=== PATIENT | male | born 1940 | race Caucasian/White ===

== ENCOUNTER → 2016-03-17 | Outpatient (CLI) | payer MEDICARE, BC | END | disposition home or self-care (01) | LOC: PCVCCLINIC 10:20 | PROVIDERS: ATTEND Internal Medicine | DX: I25.10 Atherosclerotic heart disease of native coronary artery without angina pectoris (principal); I10 Essential (primary) hypertension; E11.40 Type 2 diabetes mellitus with diabetic neuropathy, unspecified; E78.00 Pure hypercholesterolemia, unspecified; G47.30 Sleep apnea, unspecified; I63.9 Cerebral infarction, unspecified; I71.4 Abdominal aortic aneurysm, without rupture | CPT/HCPCS: 80061; 93005; G0463 ==

== ENCOUNTER → 2016-09-15 | Outpatient (CLI) | payer MEDICARE, BC ==
--- NOTE | 2016-09-15 15:27 | PCVCIMAG ---
APPROVED REPORT Indications Stenosis Risk Factors Hypertension: Hyperlipidemia CAD, Diabetes, Stroke Doppler Spectral Velocity Analysis PSV / EDVPSV / EDV ECA (R) 157 / 13 cm/sECA (L) 182 / 9 cm/s dICA (R) 64 / 22 cm/sdICA (L) 74 / 26 cm/s Petra (R) 68 / 21 cm/smICA (L) 127 / 31 cm/s pICA (R) 100 / 17 cm/spICA (L) 106 / 25 cm/s Bulb (R) 145 / 17 cm/sBulb (L) 88 / 17 cm/s dCCA (R) 123 / 15 cm/sdCCA (L) 114 / 17 cm/s mCCA (R) 98 / 16 cm/smCCA (L) 127 / 17 cm/s Vert (R) 38 / 6 cm/sVert (L) 24 / 9 cm/s ICA/CCA 0.81ICA/CCA 1.11 Basic Measurements Blood Pressure: Pulses: Right Left RightLeft Brachial(Sitting) 172/[id number]/76mmHgTemporal Real Time B-Mode Imaging Vert. (R)AntegradeVert. (L)Antegrade Findings The right carotid bulb has moderate calcified plaque. The right proximal internal carotid artery shows 40-50% stenosis. The right common carotid artery shows <40% stenosis. The right external carotid artery shows <50% stenosis. The left carotid bulb has moderate plaque. The left proximal internal carotid artery shows 40-50% stenosis. The left common carotid artery shows no significant stenosis. The left external carotid artery shows >50% stenosis. Conclusion 1. Right internal carotid artery stenosis (40-50%) 2. Left internal carotid artery stenosis (40-50%) 3. Antegrade vertebral flow
== END | disposition home or self-care (01) ==
LOC: PCVCIMAG 09:38
PROVIDERS: ATTEND Internal Medicine
DX: I65.23 Occlusion and stenosis of bilateral carotid arteries (principal); I45.10 Unspecified right bundle-branch block; I25.10 Atherosclerotic heart disease of native coronary artery without angina pectoris; I10 Essential (primary) hypertension; E78.5 Hyperlipidemia, unspecified; E11.40 Type 2 diabetes mellitus with diabetic neuropathy, unspecified; Z79.4 Long term (current) use of insulin; Z95.1 Presence of aortocoronary bypass graft; Z86.73 Personal history of transient ischemic attack (TIA), and cerebral infarction without residual deficits; Z90.49 Acquired absence of other specified parts of digestive tract; Z79.82 Long term (current) use of aspirin; Z79.84 Long term (current) use of oral hypoglycemic drugs; Z87.891 Personal history of nicotine dependence; Z88.8 Allergy status to other drugs, medicaments and biological substances
CPT/HCPCS: 93880; G0463

== ENCOUNTER → 2016-10-14 | Outpatient (CLI) | payer MEDICARE, BC ==
--- NOTE | 2016-10-14 17:46 | PCVCIMAG ---
EXAM: BILATERAL SUPERFICIAL VENOUS DUPLEX INDICATION: Leg pain and swelling. FINDINGS: Right leg: No thrombus in the common femoral, main femoral, or popliteal veins. These veins are compressible. Right Great Saphenous Vein: At the saphenofemoral junction the diameter is 10.6 mm, in the mid thigh it is 7.4 mm, and in the calf it is 5.5 mm. There is significant venous insufficiency/reflux throughout. Venous insufficiency/reflux duration is 11.8 seconds. Right Small Saphenous Vein: At the saphenopopliteal junction the diameter is 6.8 mm, and in the calf it is 5.1 mm. There is significant venous insufficiency/reflux throughout. Venous insufficiency/reflux duration is 5.7 seconds. There is not a cranial extension present. Left leg: No thrombus in the common femoral, main femoral, or popliteal veins. These veins are compressible. Left Great Saphenous Vein: At the saphenofemoral junction the diameter is 10.3 mm, in the mid thigh it is 6.0 mm, and in the calf it is 5.5 mm. There is significant venous insufficiency/reflux throughout. Venous insufficiency/reflux duration is 7.5 seconds. Left Small Saphenous Vein: At the saphenopopliteal junction the diameter is 7.3 mm, and in the calf it is 5.0 mm. There is significant venous insufficiency/reflux throughout. Venous insufficiency/reflux duration is 5.7 seconds. There is a cranial extension present. IMPRESSION: Right Great Saphenous Vein: Significant venous insufficiency/reflux is present as noted above. Right Small Saphenous Vein: Significant venous insufficiency/reflux is present as noted above. Left Great Saphenous Vein: Significant venous insufficiency/reflux is present as noted above. Left Small Saphenous Vein: Significant venous insufficiency/reflux is present as noted above. LOC:[id number]
== END | disposition home or self-care (01) ==
LOC: PCVCIMAG 10:20
PROVIDERS: ATTEND Internal Medicine
DX: I87.2 Venous insufficiency (chronic) (peripheral) (principal); I25.10 Atherosclerotic heart disease of native coronary artery without angina pectoris; I10 Essential (primary) hypertension; I65.23 Occlusion and stenosis of bilateral carotid arteries; E78.5 Hyperlipidemia, unspecified; E11.40 Type 2 diabetes mellitus with diabetic neuropathy, unspecified; Z79.4 Long term (current) use of insulin
CPT/HCPCS: 93970

== ENCOUNTER → 2016-11-16 | Outpatient (CLI) | payer MEDICARE, BC | END | disposition home or self-care (01) | LOC: PCVCCLINIC 14:23 | PROVIDERS: ATTEND Nuclear Medicine Nuclear Cardiology | DX: I87.2 Venous insufficiency (chronic) (peripheral) (principal); I10 Essential (primary) hypertension; I71.4 Abdominal aortic aneurysm, without rupture; I77.9 Disorder of arteries and arterioles, unspecified; I71.2 Thoracic aortic aneurysm, without rupture; E11.40 Type 2 diabetes mellitus with diabetic neuropathy, unspecified; Z86.73 Personal history of transient ischemic attack (TIA), and cerebral infarction without residual deficits; Z90.49 Acquired absence of other specified parts of digestive tract; Z95.1 Presence of aortocoronary bypass graft; Z87.891 Personal history of nicotine dependence; Z79.899 Other long term (current) drug therapy; Z79.82 Long term (current) use of aspirin; Z79.84 Long term (current) use of oral hypoglycemic drugs; Z88.8 Allergy status to other drugs, medicaments and biological substances | CPT/HCPCS: G0463 ==

== ENCOUNTER → 2016-11-23 | Outpatient (CLI) | payer MEDICARE, BC ==
[~2016-11-23] MED LIST: DIAZEPAM 10 MG TABLET. ONE; FAMOTIDINE 20 MG/2 ML VIAL ONE; HEPARIN SODIUM 5,000 UNIT/ML VIAL for PCVC. ONE; IOHEXOL 300 MG/ML 100ML VIAL. ONE; IV NORMAL SALINE 500ML BAG 500 ML ONE; LIDOCAINE 1% Multi-Dose 20 ML VIAL. ONE; MIDAZOLAM HCL/PF 2 MG/2 ML VIAL. ONE; diphenhydrAMINE 50 MG/ML VIAL ONE; fentaNYL PF VIAL 100 MCG/2 ML VIAL ONE; methylPREDNISolone SOD SUCC PF 125 MG/2 ML VIAL. ONE
--- NOTE | 2016-11-23 16:38 | PCVCINTER ---
EXAM: 1. INTRAVASCULAR ULTRASOUND OF THE INFERIOR VENA CAVA 2. INTRAVASCULAR ULTRASOUND OF THE RIGHT COMMON AND EXTERNAL ILIAC AND COMMON FEMORAL VEINS 3. INTRAVASCULAR ULTRASOUND OF THE LEFT COMMON AND EXTERNAL ILIAC AND COMMON FEMORAL VEINS 4. INFERIOR VENA CAVA AND BILATERAL ILIOFEMORAL VENOGRAPHY 5. RIGHT COMMON ILIAC VEIN STENT PLACEMENT. 6. RIGHT EXTERNAL ILIAC VEIN STENT PLACEMENT. 7. LEFT EXTERNAL ILIAC VEIN STENT PLACEMENT. INDICATION: Iliofemoral venous obstruction. Chronic Venous Insufficiency Class 6. Leg pain and swelling. Failed conservative therapy including medical grade compression stockings for at least 3 months. Venous hypertension chronic. PROCEDURE: Procedure and risks of IVC and ileofemoral venography and intravascular ultrasound, and venous stent placement as appropriate including bleeding, infection, venous thrombosis, stent migration/thrombosis, contrast-induced nephropathy requiring dialysis, stroke, and were discussed with the patient and consent obtained. Patient was given IV antibiotics. The patient's right neck and chest was prepped and draped in the normal sterile fashion. IV conscious sedation was used throughout the procedure with appropriate monitoring. Ultrasound was used to interrogate the neck and showed the internal jugular vein to be patent. A spot ultrasound image of the internal jugular vein was saved. Under ultrasound guidance access into the right internal jugular vein was obtained and an 8F sheath was placed to the level of the lower IVC. Catheter was placed into the lower IVC and IVC cavogram performed. Catheter was placed to the level of the right common femoral vein and right iliofemoral venogram obtained. Catheter was placed to the level of the left common femoral vein and left iliofemoral venogram was obtained. The 8 [place] intravascular ultrasound catheter was then placed to the level of the right common femoral vein and intravascular ultrasound evaluation of the right common femoral, right external iliac, and right common iliac veins was accomplished in a pull-back fashion. The 8 [place] intravascular ultrasound catheter was then placed to the level of the left common femoral vein and intravascular ultrasound evaluation of the left common femoral, left external iliac, and left common iliac veins was accomplished in a pull-back fashion. Intravascular ultrasound evaluation of the inferior vena cava was then accomplished in a pullback fashion. Stent placement was performed at the area of high-grade extrinsic compression in the right external iliac vein with a 14 x 80 Smart control stent with subsequent dilatation to 14 mm. Stent placement across the area of significant extrinsic compression in the right common iliac vein was performed with a 14 x 60 Smart control stent with subsequent dilatation to 14 mm. Stent placement across the area of significant extrinsic compression in the left external iliac vein was performed with a 14 x 80 Smart control stent with subsequent dilatation to 14 mm. Follow-up intravascular ultrasound throughout the treated vessels was performed. Sheath was removed and hemostasis obtained using manual pressure. FINDINGS: IVC INTRAVASCULAR ULTRASOUND: Normal vessel: 12.9 x 17.7 mm. Area = 176.9 sq. mm. RIGHT COMMON ILIAC VEIN INTRAVASCULAR ULTRASOUND: Normal vessel: 9.0 x 14.1 mm. Area = 96.8 sq. mm. Minimum vessel diameter: 2.4 x 8.5 mm. Area = 20.0 sq. mm. Post-Intervention diameter: 11.9 x 13.9 mm. Area = 125.7 sq. mm. RIGHT EXTERNAL ILIAC VEIN INTRAVASCULAR ULTRASOUND: Normal vessel: 8.8 x 14.8 mm. Area = 104.7 sq. mm. Minimum vessel diameter: 2.9 x 6.2 mm. Area = 14.5 sq. mm. Post-Intervention diameter: 11.5 x 12.4 mm. Area = 110.3 sq. mm. RIGHT COMMON FEMORAL VEIN INTRAVASCULAR ULTRASOUND: Normal vessel: 9.5 x 12.3 mm. Area = 91.5 sq. mm LEFT COMMON ILIAC VEIN INTRAVASCULAR ULTRASOUND: Normal vessel: 10.9 x 13.7 mm. Area = 122.3 sq. mm. LEFT EXTERNAL ILIAC VEIN INTRAVASCULAR ULTRASOUND: Normal vessel: 7.7 x 17.6 mm. Area = 113.7 sq. mm. Minimum vessel diameter: 2.8 x 9.0 mm. Area = 19.5 sq. mm. Post-Intervention diameter: 10.9 x 14.3 mm. Area = 127.3 sq. mm. LEFT COMMON FEMORAL VEIN INTRAVASCULAR ULTRASOUND: Normal vessel: 12.3 x 14.5 mm. Area = 135.0 sq. mm. VENOGRAPHY: INFERIOR VENA CAVA: Vessel is patent without significant stenosis, scarring, or extrinsic compression. RIGHT COMMON ILIAC VEIN: Significant extrinsic compression in the mid and lower vessel causing 79% area reduction. RIGHT EXTERNAL ILIAC VEIN: Significant extrinsic compression throughout the mid and upper vessel resulting in 86% diameter reduction. RIGHT COMMON FEMORAL VEIN: Vessel is patent without significant stenosis, scarring, or extrinsic compression. LEFT COMMON ILIAC VEIN: Vessel is patent without significant stenosis, scarring, or extrinsic compression. LEFT EXTERNAL ILIAC VEIN: Significant extradural compression throughout the mid and upper vessel resulting in 83% area reduction. LEFT COMMON FEMORAL VEIN: Vessel is patent without significant stenosis, scarring, or extrinsic compression. IMPRESSION: High-grade extrinsic compression involving the right common and external iliac veins and left external iliac vein were treated with stent placements with good patency restored and good position of the stents. LOC:[id number]
== END | disposition home or self-care (01) ==
LOC: PCVCINTER 10:38
PROVIDERS: ATTEND Nuclear Medicine Nuclear Cardiology
DX: I87.2 Venous insufficiency (chronic) (peripheral) (principal); I74.3 Embolism and thrombosis of arteries of the lower extremities; I87.009 Postthrombotic syndrome without complications of unspecified extremity; E66.9 Obesity, unspecified; E78.5 Hyperlipidemia, unspecified; E11.9 Type 2 diabetes mellitus without complications; E78.00 Pure hypercholesterolemia, unspecified
CPT/HCPCS: 37238; 37239; 37252; 37253; 75822; 75825; 76937; 99152; 99153; C1725; C1751; C1753; C1769; C1876; C1894; J0690; J1200; J1644; J2250; J2930; J3010; J7040; Q9967; S0028

== ENCOUNTER → 2017-02-01 | Outpatient (CLI) | payer MEDICARE, BC ==
--- NOTE | 2017-02-01 12:18 | PCVCIMAG ---
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 FINDINGS: INFERIOR VENA CAVA: The inferior vena cava is patent where visualized. RIGHT COMMON ILIAC VEIN: Vessel is patent without significant stenosis. Previous stent is patent. RIGHT EXTERNAL ILIAC VEIN: Vessel is patent without significant stenosis. Previous stent is patent. LEFT COMMON ILIAC VEIN: Vessel is patent without significant stenosis. LEFT EXTERNAL ILIAC VEIN: Vessel is patent without significant stenosis. Previous stent is patent. IMPRESSION: The inferior vena cava and bilateral common and external iliac veins are patent as reviewed above. LOC:[id number]
--- NOTE | 2017-02-01 12:21 | PCVCIMAG ---
EXAM: BILATERAL SUPERFICIAL VENOUS DUPLEX INDICATION: Leg pain and swelling. FINDINGS: Right leg: No thrombus in the common femoral, main femoral, or popliteal veins. These veins are compressible. Right Great Saphenous Vein: At the saphenofemoral junction the diameter is 9.7 mm, in the mid thigh it is 5.5 mm, and in the calf it is 5.1 mm. There is significant venous insufficiency/reflux throughout. Venous insufficiency/reflux duration is 11.0 seconds. Right Small Saphenous Vein: At the saphenopopliteal junction the diameter is 5.3 mm, and in the calf it is 5.2 mm. There is significant venous insufficiency/reflux throughout. Venous insufficiency/reflux duration is 4.4 seconds. There is not a cranial extension present. Left leg: No thrombus in the common femoral, main femoral, or popliteal veins. These veins are compressible. Left Great Saphenous Vein: At the saphenofemoral junction the diameter is 9.8 mm, in the mid thigh it is 4.5 mm, and in the calf it is 5.1 mm. There is not significant venous insufficiency/reflux throughout. Venous insufficiency/reflux duration is 0.3 seconds. Left Small Saphenous Vein: At the saphenopopliteal junction the diameter is 7.4 mm, and in the calf it is 3.7 mm. There is not significant venous insufficiency/reflux throughout. Venous insufficiency/reflux duration is 0.3 seconds. There is not a cranial extension present. IMPRESSION: Right Great Saphenous Vein: Significant venous insufficiency/reflux is present as noted above. Right Small Saphenous Vein: Significant venous insufficiency/reflux is present as noted above. Left Great Saphenous Vein: No significant venous insufficiency/reflux is present as noted above. Left Small Saphenous Vein: No significant venous insufficiency/reflux is present as noted above. LOC:[id number]
== END | disposition home or self-care (01) ==
LOC: PCVCIMAG 09:50
PROVIDERS: ATTEND Nuclear Medicine Nuclear Cardiology
DX: I87.2 Venous insufficiency (chronic) (peripheral) (principal); I71.4 Abdominal aortic aneurysm, without rupture; I25.10 Atherosclerotic heart disease of native coronary artery without angina pectoris; I10 Essential (primary) hypertension; I71.2 Thoracic aortic aneurysm, without rupture; I77.9 Disorder of arteries and arterioles, unspecified; M54.16 Radiculopathy, lumbar region; E11.40 Type 2 diabetes mellitus with diabetic neuropathy, unspecified; E78.00 Pure hypercholesterolemia, unspecified; I87.1 Compression of vein; Z87.891 Personal history of nicotine dependence; Z79.899 Other long term (current) drug therapy; Z79.82 Long term (current) use of aspirin; Z79.84 Long term (current) use of oral hypoglycemic drugs
CPT/HCPCS: 93970; 93976; G0463

== ENCOUNTER → 2017-03-23 | Outpatient (CLI) | payer MEDICARE, BC | END | disposition home or self-care (01) | LOC: PCVCCLINIC 10:50 | DX: I65.23 Occlusion and stenosis of bilateral carotid arteries (principal); I12.9 Hypertensive chronic kidney disease with stage 1 through stage 4 chronic kidney disease, or unspecified chronic kidney disease; E11.22 Type 2 diabetes mellitus with diabetic chronic kidney disease; E11.40 Type 2 diabetes mellitus with diabetic neuropathy, unspecified; N18.3 Chronic kidney disease, stage 3 (moderate); I25.10 Atherosclerotic heart disease of native coronary artery without angina pectoris; I71.2 Thoracic aortic aneurysm, without rupture; E78.00 Pure hypercholesterolemia, unspecified; G47.33 Obstructive sleep apnea (adult) (pediatric); I63.9 Cerebral infarction, unspecified; Z87.891 Personal history of nicotine dependence; Z79.899 Other long term (current) drug therapy; Z79.82 Long term (current) use of aspirin; Z79.84 Long term (current) use of oral hypoglycemic drugs | CPT/HCPCS: 93005; 93880; G0463 ==

== ENCOUNTER → 2017-08-16 | Outpatient (CLI) | payer MEDICARE, BC ==
[~2017-08-16] MED LIST changes: +DIAZEPAM 10 MG TABLET.; -DIAZEPAM 10 MG TABLET. ONE; +FAMOTIDINE 20 MG/2 ML VIAL; -FAMOTIDINE 20 MG/2 ML VIAL ONE; -HEPARIN SODIUM 5,000 UNIT/ML VIAL for PCVC. ONE; +IOHEXOL 300 MG/ML 100ML VIAL.; -IOHEXOL 300 MG/ML 100ML VIAL. ONE; -IV NORMAL SALINE 500ML BAG 500 ML ONE; -LIDOCAINE 1% Multi-Dose 20 ML VIAL. ONE; +LIDOCAINE 1% PF 30 ML VIAL.; +MIDAZOLAM HCL/PF 2 MG/2 ML VIAL.; -MIDAZOLAM HCL/PF 2 MG/2 ML VIAL. ONE; +diphenhydrAMINE 50 MG/ML VIAL; -diphenhydrAMINE 50 MG/ML VIAL ONE; +fentaNYL PF VIAL 100 MCG/2 ML VIAL; -fentaNYL PF VIAL 100 MCG/2 ML VIAL ONE; +methylPREDNISolone SOD SUCC PF 125 MG/2 ML VIAL.; -methylPREDNISolone SOD SUCC PF 125 MG/2 ML VIAL. ONE
== END ==
LOC: PCVCINTER 10:59
DX: I87.2 Venous insufficiency (chronic) (peripheral) (principal); Z88.8 Allergy status to other drugs, medicaments and biological substances; I25.10 Atherosclerotic heart disease of native coronary artery without angina pectoris; I12.9 Hypertensive chronic kidney disease with stage 1 through stage 4 chronic kidney disease, or unspecified chronic kidney disease; N18.3 Chronic kidney disease, stage 3 (moderate); E11.22 Type 2 diabetes mellitus with diabetic chronic kidney disease; G47.33 Obstructive sleep apnea (adult) (pediatric); E11.40 Type 2 diabetes mellitus with diabetic neuropathy, unspecified; I65.23 Occlusion and stenosis of bilateral carotid arteries; I71.2 Thoracic aortic aneurysm, without rupture; E78.00 Pure hypercholesterolemia, unspecified; Z87.891 Personal history of nicotine dependence; Z79.82 Long term (current) use of aspirin; Z79.84 Long term (current) use of oral hypoglycemic drugs; Z79.899 Other long term (current) drug therapy
CPT/HCPCS: 36012; 37252; 37253; 75822; 75825; 76937; C1751; C1753; C1769; C1894; J1200; J1644; J2250; J2930; J3010; Q9967; S0028

== ENCOUNTER → 2017-09-20 | Outpatient (CLI) | payer MEDICARE, BC | END | disposition home or self-care (01) | LOC: PCVCCLINIC 10:58 | DX: I25.10 Atherosclerotic heart disease of native coronary artery without angina pectoris (principal); E78.00 Pure hypercholesterolemia, unspecified; I65.23 Occlusion and stenosis of bilateral carotid arteries; I71.4 Abdominal aortic aneurysm, without rupture; G47.33 Obstructive sleep apnea (adult) (pediatric); I12.9 Hypertensive chronic kidney disease with stage 1 through stage 4 chronic kidney disease, or unspecified chronic kidney disease; E11.22 Type 2 diabetes mellitus with diabetic chronic kidney disease; N18.3 Chronic kidney disease, stage 3 (moderate); E11.40 Type 2 diabetes mellitus with diabetic neuropathy, unspecified; Z79.899 Other long term (current) drug therapy | CPT/HCPCS: 93005; G0463 ==

== ENCOUNTER → 2018-03-28 | Outpatient (CLI) | payer MEDICARE, BC ==
--- NOTE | 2018-03-28 12:47 | PCVCIMAG ---
APPROVED REPORT Indications Stenosis Risk Factors Hypertension: TIA/CVA History Hyperlipidemia Diabetes Doppler Spectral Velocity Analysis PSV / EDVPSV / EDV ECA (R) 75 / 8 cm/sECA (L) 119 / 16 cm/s dICA (R) 77 / 22 cm/sdICA (L) 76 / 21 cm/s Petra (R) 68 / 21 cm/smICA (L) 79 / 29 cm/s pICA (R) 118 / 10 cm/spICA (L) 121 / 27 cm/s Bulb (R) 94 / 18 cm/sBulb (L) 63 / 15 cm/s dCCA (R) 89 / 16 cm/sdCCA (L) 81 / 12 cm/s mCCA (R) 82 / 18 cm/smCCA (L) 92 / 15 cm/s Vert (R) 27 / 0 cm/sVert (L) 32 / 11 cm/s ICA/CCA 1.33 ICA/CCA 1.32 Basic Measurements Blood Pressure: Pulses: Right Left RightLeft Brachial(Sitting) 152/68mlOm813/82mmHgTemporal Real Time B-Mode Imaging Vert. (R)AntegradeVert. (L)Antegrade Findings The right carotid bulb has moderate calcified plaque. The right proximal internal carotid artery shows 40-50% stenosis. The right common carotid artery shows no significant stenosis. The right external carotid artery shows no significant stenosis. The left carotid bulb has moderate calcified plaque. The left proximal internal carotid artery shows 40-50% stenosis. The left common carotid artery shows no significant stenosis. The left external carotid artery shows no significant stenosis. Conclusion 1. Right internal carotid artery stenosis (40-50%) 2. Left internal carotid artery stenosis (40-50%) 3. Antegrade vertebral flow Similar to March 2017
--- NOTE | 2018-03-28 15:32 | PCVCIMAG ---
EXAM: AORTOILIAC DUPLEX INDICATION: Abdominal aortic aneurysm. FINDINGS: AORTA: Suprarenal aorta measures maximum diameter of 2.9 cm. There is a fusiform infrarenal aortic aneurysm. The infrarenal aorta measures maximum diameter of 3.0 x 3.2 cm. No aortic stenosis. RIGHT COMMON ILIAC ARTERY: Maximum diameter is 1.2 cm. No significant stenosis. RIGHT EXTERNAL ILIAC ARTERY: No significant stenosis. LEFT COMMON ILIAC ARTERY: Maximum diameter is 1.3 cm. No significant stenosis. LEFT EXTERNAL ILIAC ARTERY: No significant stenosis. IMPRESSION: 3.2 cm infrarenal abdominal aortic aneurysm. LOC:[id number]
== END | disposition home or self-care (01) ==
LOC: PCVCIMAG 09:34
PROVIDERS: ATTEND Internal Medicine
DX: I65.23 Occlusion and stenosis of bilateral carotid arteries (principal); I71.4 Abdominal aortic aneurysm, without rupture; E11.40 Type 2 diabetes mellitus with diabetic neuropathy, unspecified; E78.2 Mixed hyperlipidemia; I25.10 Atherosclerotic heart disease of native coronary artery without angina pectoris; E78.00 Pure hypercholesterolemia, unspecified; G47.33 Obstructive sleep apnea (adult) (pediatric); I12.9 Hypertensive chronic kidney disease with stage 1 through stage 4 chronic kidney disease, or unspecified chronic kidney disease; E11.22 Type 2 diabetes mellitus with diabetic chronic kidney disease; N18.3 Chronic kidney disease, stage 3 (moderate); Z79.82 Long term (current) use of aspirin
CPT/HCPCS: 93005; 93880; 93978; G0463

== ENCOUNTER → 2018-09-26 | Outpatient (CLI) | payer MEDICARE, BC ==
--- NOTE | 2018-09-26 10:57 | PCVCIMAG ---
APPROVED REPORT Study performed: 09/26/2018 09:49:58 EXAM: Comprehensive 2D, Doppler, and color-flow Echocardiogram Patient Location: Echo lab Status: routine BSA: 2.23 HR: 63 bpmBP: 160/80 mmHg Rhythm: NSR Other Information Study Quality: Technically Difficult Risk Factors: Cardiac Risk Factors: HTN, Hyperlipidemia, DM Indications CAD CABG, AAA, MARÍA 2D Dimensions IVSd: 13.42 (7-11mm)LVOT Diam: 20.75 (18-24mm) LVDd: 51.78 mm PWd: 10.96 (7-11mm)Ascending Ao: 36.36 (22-36mm) LVDs: 37.73 (25-40mm) Left Atrium: 42.61 (27-40mm) Aortic Root: 24.45 mm LV Single Plane 4CH: 61.58 % LV Single Plane 2CH: 63.15 % Volumes Left Atrial Volume (Systole) Single Plane 4CH: 42.00 mLSingle Plane 2CH: 56.44 mL Aortic Valve AoV Peak Sidney.: 1.49 m/s AO Peak Gr.: 8.82 mmHgLVOT Max P.12 mmHg LVOT Max V: 1.13 m/s USHA Vmax: 2.58 cm2 Mitral Valve E/A Ratio: 0.5 MV Decel. Time: 196.26 ms MV E Max Sidney.: 0.62 m/s MV A Sidney.: 1.13 m/s IVRT: 138.41 ms TDI E/Lateral E': 10.33E/Medial E': 6.89 Medial E' Sidney.: 0.09 m/s Lateral E' Sidney.: 0.06 m/s Pulmonary Valve PV Peak Gr.: 2.60 mmHg Pulmonary Vein P Vein S: 0.53 m/sP Vein A: 0.21 m/s P Vein D: 0.38 m/sP Vein A Dur.: 90.0 msec P Vein S/D Ratio: 1.39 Left Ventricle The left ventricle is normal size. There is normal left ventricular wall thickness. Left ventricular systolic function is normal. Hypokinesis base of inferior wall. LVEF is 55-60%. Mild diastolic dysfunction is present (impaired relaxation pattern). Right Ventricle The right ventricle is normal size. The right ventricular systolic function is normal. Atria The left atrium size is normal. The right atrium size is normal. Aortic Valve Mild calcification, trileaflet No aortic regurgitation is present. There is no aortic valvular stenosis. Mitral Valve The mitral valve is normal in structure. There is no mitral valve regurgitation noted. No evidence of mitral valve stenosis. Tricuspid Valve The tricuspid valve is normal in structure. There is no tricuspid valve regurgitation noted. Pulmonic Valve The pulmonary valve is normal in structure. There is no pulmonic valvular regurgitation. Great Vessels The aortic root is normal in size. IVC is normal in size and collapses >50% with inspiration. Pericardium There is no pericardial effusion. <Conclusion> Left ventricular systolic function is normal. Hypokinesis base of inferior wall. LVEF is 55-60%. Mild diastolic dysfunction Trileaflet aortic valvem mildly calcified. No aortic regurgitation or stenosis. The mitral valve is normal in structure. No mitral valve regurgitation Pulmonary artery pressure could not be reliably ascertained There is no pericardial effusion.
== END | disposition home or self-care (01) ==
LOC: PCVCIMAG 09:33
PROVIDERS: ATTEND Internal Medicine
DX: I25.10 Atherosclerotic heart disease of native coronary artery without angina pectoris (principal); E78.00 Pure hypercholesterolemia, unspecified; I65.23 Occlusion and stenosis of bilateral carotid arteries; I71.4 Abdominal aortic aneurysm, without rupture; G47.33 Obstructive sleep apnea (adult) (pediatric); E11.40 Type 2 diabetes mellitus with diabetic neuropathy, unspecified; I12.9 Hypertensive chronic kidney disease with stage 1 through stage 4 chronic kidney disease, or unspecified chronic kidney disease; E11.22 Type 2 diabetes mellitus with diabetic chronic kidney disease; N18.3 Chronic kidney disease, stage 3 (moderate)
CPT/HCPCS: 93005; 93306; G0463

== ENCOUNTER → 2018-09-29 | Outpatient (CLI) | payer MEDICARE, BC ==
--- NOTE | 2018-09-29 17:58 | PCVCIMAG ---
EXAM: BILATERAL LOWER EXTREMITY ARTERIAL DUPLEX INDICATION: Peripheral Arterial Disease. Leg pain. FINDINGS: Right Leg: Satisfactory arterial waveforms throughout the common/profunda/superficial femoral, popliteal, anterior tibial, peroneal, and posterior tibial arteries. No flow limiting stenosis seen. Left Leg: Common femoral profunda femoral arteries are patent. Superficial femoral artery and popliteal artery are patent. Occlusion of the mid/distal anterior and posterior tibial arteries. Peroneal artery is patent. IMPRESSION: No flow limiting stenosis in the right lower extremity. Occlusion of mid/distal left anterior and posterior tibial arteries. Otherwise no flow limiting stenosis in the left lower extremity. LOC:OFFICE
== END | disposition home or self-care (01) ==
LOC: PCVCIMAG 12:35
PROVIDERS: ATTEND Nuclear Medicine Nuclear Cardiology
DX: I73.9 Peripheral vascular disease, unspecified (principal)
CPT/HCPCS: 93925